=== PATIENT | female | born 1980 | race Hispanic/Latino ===

== ENCOUNTER → 2017-12-28 | Outpatient (CLI) | payer OTHER ==
--- NOTE | 2017-12-28 12:10 | Diagnostic Imaging Report ---
Exam: Right shoulder 2 views History: Shoulder pain Comparison: None. Findings: No acute, displaced fracture or dislocation. The humeral head projects appropriately adjacent to the glenoid. Acromioclavicular and glenohumeral joint spaces are well-maintained. Soft tissues are unremarkable. Partially visualized right hemithorax is well aerated. Impression: 1. No acute osseous abnormality. Signed by: Dr. Matt Quijano M.D. on 12/28/2017 12:06 PM
--- NOTE | 2017-12-28 12:11 | Diagnostic Imaging Report ---
Exam: Right os calcis, 2 views History: Heel pain Comparison: None. Findings: No acute, displaced fracture or dislocation. Subtalar joint is well-maintained. Minimal degenerative posterior calcaneal spur. Soft tissues unremarkable. Impression: No acute osseous abnormalities. Minimal posterior calcaneal spur. Signed by: Dr. Matt Quijano M.D. on 12/28/2017 12:07 PM
== END ==
LOC: RAD 11:18
PROVIDERS: ATTEND Family Medicine
DX: M79.671 Pain in right foot (principal); M25.511 Pain in right shoulder

== ENCOUNTER → 2018-02-24 | Outpatient (CLI) | payer OTHER ==
--- NOTE | 2018-02-24 11:27 | Diagnostic Imaging Report ---
PROCEDURE:X-RAY LEFT HEEL COMPARISON:None. INDICATIONS:LEFT HEEL PAIN FINDINGS: BONES: Normal mineralization. No evidence of fracture or malalignment. Joint spaces are within normal limits. SOFT TISSUES:Minimal Achilles enthesopathy. CONCLUSION: No acute radiographic abnormality. Minimal Achilles enthesopathy. Dictated by: FAB PRESSLEY M.D. on 02/24/2018 at 11:37 Electronically approved by: FAB PRESSLEY M.D. on 02/24/2018 at 11:37
== END ==
LOC: RAD 10:11
PROVIDERS: ATTEND Family Medicine
DX: M79.672 Pain in left foot (principal)

== ENCOUNTER 2019-05-21 11:41 | Emergency (ER) | payer OTHER ==
[~2019-05-21] VITALS: Ht 152.4 cm; Wt 65.8 kg
--- OUTSIDE RECORDS SUMMARY | 2019-05-21 11:44 | XMS REPORT ---
[facility] Address Unknown Phone Unavailable Care Team Providers Care Publications Designer Name Role Phone EPIFANIO DRIVER Unavailable Unavailable Payers Payer Name Policy Type Policy Number Effective Date Expiration Date Problems This patient has no known problems. Allergies, Adverse Reactions, Alerts Allergy Name Allergy Type Status Severity Reaction(s) Onset Date Inactive Date Treating Clinician Comments No Known Allergies DA Active U 2011-09-19 00:00:00 Medications This patient has no known medications. Results Test Description Test Time Test Comments Text Results Atomic Results Result Comments LT 2018-02-24 11:37:00 [place] [address] Patient Name: LEENA LINTON MR #: [id number] : 1980 Age/Sex: 37/F Req #: [id number] Adm Physician: Ordered by: VILLA LANG, EPIFANIO Cruz MD Report #: [id number] Location: [facility] Room/Bed: Procedure: [id number] DX/HEEL LT Exam Date: 02/24/18 Exam Time: 1026 REPORT STATUS: Signed PROCEDURE: X-RAY LEFT HEEL COMPARISON: None. I NDICATIONS: LEFT HEEL PAIN FINDINGS: BONES: Normal mineralization. No evidence of fracture or malalignment. Joint spaces are within normal limits. SOFT TISSUES: Minimal Achilles enthesopathy. CONCLUSION: No acute radiographic abnormality. Minimal Achilles enthesopathy. Dictated by: FAB PRESSLEY M.D. on 02/24/2018 at 11:37 Electronically approved by: FAB PRESSLEY M.D. on 02/24/2018 at 11:37 Dictated By: FAB PRESSLEY MD 113 Transcribed By: PETROS on 02/24/18 1137 COPY TO: EPIFANIO DRIVER HEEL RT 2017-12-28 12:06:00 [place] [address] Patient Name: LEENA LINTON MR #: [id number] : 1980 Age/Sex: 37/F Req #: [id number] Adm Physician: Ordered by: EPIFANIO DRIVER MD, MD Report #: [id number] Location: [facility] Room/Bed: Procedure: [id number] DX/HEEL RT Exam Date: 12/28/17 Exam Time: 1120 REPORT STATUS: Signed Exam: Right os calcis, 2 views History: Heel pain Comparison: None. Findings: No acute, displaced fracture or dislocation. Subtalar joint is well-maintained. Minimal degenerative posterior calcaneal spur. Soft tissues unremarkable. Impression: No acute osseous abnormalities. Minimal posterior calcaneal spur. Signed by: Dr. Zoila Dewey M.D. on 12/28/2017 12:07 PM Dictated By: ZOILA DEWEY MD 06 Transcribed By: PATRICK on 12/28/171206 COPY TO: EPIFANIO DRIVER SHOULDER RIGHT COMPLETE 2017-12-28 12:05:00 [facility] [address] [place] [address] Patient Name: LEENA LINTON MR #: [id number] : 1980 Age/Sex: 37/F Req #: [id number] Adm Physician: Ordered by: EPIFANIO DRIVER MD, MD Report #: [id number] Location: [facility] Room/Bed: Procedure: [id number] DX/SHOULDER RIGHT COMPLETE Exam Date: 12/28/17 Exam Time: 1120 REPORT STATUS: Signed Exam: Right shoulder 2 views History: Shoulder pain Comparison: None. Findings: No acute, displaced fracture or dislocation. The humeral head projects appropriately adjacent to the glenoid. Acromioclavicular and glenohumeral joint spaces are well-maintained. Soft tissues are unremarkable. Partially visualized right hemithorax is well aerated. Impression: 1. No acute osseous abnormality. Signed by: Dr. Zoila Dewey M.D. on 12/28/2017 12:06 PM Dictated By: ZOILA DEWEY MD 05 Transcribed By: PATRICK on 12/28/171205 COPY TO: EPIFANIO DRIVER
[2019-05-21] MEDS ORDERED: ALBUTEROL/IPRATROPIUM 3 ML NEB NEB ONE (12:30)
[2019-05-21] MEDS ORDERED: LORAZEPAM INJ 2 MG/ML VIAL IM NR (12:30)
[2019-05-21] MEDS ORDERED: ALBUTEROL/IPRATROPIUM 3 ML NEB ONE (12:41)
[2019-05-21] MEDS ORDERED: LORAZEPAM INJ 2 MG/ML VIAL ONE (12:41)
[2019-05-21] MEDS ORDERED: IBUPROFEN 600 MG TAB ONE (12:42)
[2019-05-21] MEDS ORDERED: IBUPROFEN 600 MG TAB PO STA (12:44)
--- NOTE | 2019-05-21 13:25 | Diagnostic Imaging Report ---
EXAMINATION: CXR 2 VIEW - HOPD INDICATION: Cough, shortness of breath. COMPARISON: None FINDINGS: TUBES and LINES: None. LUNGS: Mild bronchial wall thickening. There is no evidence of lobar pneumonia or pulmonary edema. PLEURA: No pleural effusion or pneumothorax. HEART AND MEDIASTINUM: The cardiomediastinal silhouette is unremarkable. BONES AND SOFT TISSUES: No acute osseous lesion. Soft tissues are unremarkable. UPPER ABDOMEN: No free air under the diaphragm. IMPRESSION: Mild bronchial wall thickening, which may represent bronchitis in the setting of cough. No evidence of lobar pneumonia. Signed by: Dr. Annette Webb MD on 05/21/2019 1:22 PM
[2019-05-21] MEDS ORDERED: PREDNISONE 20 MG TAB PO ONE (14:00)
[2019-05-21 14:06] VITALS: BP 120/69
== END 2019-05-21 14:02 | disposition home or self-care (01) ==
LOC: FSED 11:41
DX: J20.9 Acute bronchitis, unspecified (principal); F41.1 Generalized anxiety disorder; J45.990 Exercise induced bronchospasm
CPT/HCPCS: 71046; 87400; 96372; 99283; J2060; J7512